=== PATIENT | male | born 1975 | race Caucasian/White ===

== ENCOUNTER 2018-06-14 05:28 | Day surgery (SDC) | payer MEDICARE, MEDICAID ==
[~2018-06-14] VITALS: Ht 152.4 cm; Wt 49.7 kg
[~2018-06-14 05:28] MED LIST: CARB15DR91 EACH EAR; COL100C PO; GLYC1TAB11 PO; LORA10TA7 PO; MAGN800O PO; PROP1DRO7 OP; SENN-161 PO
[2018-06-14] MEDS ORDERED: MIDAZOLAM HCL 10 MG/5 ML UD cup PO ONE (06:15)
[2018-06-14] MEDS ORDERED: LIDOcaine 1% (10mg/ml) 2ml vial ONE (06:24)
[2018-06-14] MEDS ORDERED: famotidine/PF 10 mg/ml inj IV ONE (06:35)
[2018-06-14] MEDS ORDERED: normal saline 1000ml 1,000 ML IV SCH (06:35)
[2018-06-14] MEDS ORDERED: ringers solution, lacted 1,000 ML IV SCH ×2 (06:40→07:28)
[2018-06-14 06:54] VITALS: BP 98/53
[2018-06-14 06:57] VITALS: BP 98/53
[2018-06-14] MEDS ORDERED: LIDOcaine 2% 10ml TOPICAL JELLY (Urojet) ONE (07:16)
[2018-06-14] MEDS ORDERED: oxymetazoline 15 ML nasal spray NS ONE (07:16)
[2018-06-14] MEDS ORDERED: fentaNYL/PF 50MCG/1 ML 2ML syringe ONE (07:21)
[2018-06-14] MEDS ORDERED: midazolam 2 mg/2 ml injection ONE (07:21)
[2018-06-14] MEDS ORDERED: ondansetron/PF 4mg/2ml inj ONE (07:22)
[2018-06-14] MEDS ORDERED: glycopyrrolate 0.2mg/ml inj ONE ×2 (07:22→08:57)
[2018-06-14] MEDS ORDERED: neostigmine methylsulfate 1 MG/ML 10ml vial ONE (07:22)
[2018-06-14] MEDS ORDERED: rocuronium 10mg/ml inj IV ONE (07:22)
[2018-06-14] MEDS ORDERED: propofol inj 20 ML IV ONE (07:23)
[2018-06-14] MEDS ORDERED: LIDOcaine 2% (20mg/ml) 5ml vial ONE (07:23)
[2018-06-14] MEDS ORDERED: dexamethasone sod phosphate 10mg/ml inj ONE (07:26)
[2018-06-14] MEDS ORDERED: sevoflurane 250ml liquid IH ONE (07:26)
[2018-06-14] MEDS ORDERED: morphine 4 MG/ML inj SYRINge IV PRN ×2 (07:30)
[2018-06-14] MEDS ORDERED: hydrALAZINE 20mg/ml inj. IV PRN (07:30)
[2018-06-14] MEDS ORDERED: fentaNYL/PF 50MCG/1 ML 2ML syringe IV PRN ×2 (07:30)
[2018-06-14] MEDS ORDERED: labetalol 20mg/4ml (5mg/ml) syringe IV PRN (07:30)
[2018-06-14] MEDS ORDERED: ondansetron/PF 4mg/2ml inj IV PRN (07:30)
[2018-06-14 09:12] VITALS: BP 129/87
[2018-06-14 09:22] VITALS: BP 118/78
[2018-06-14 09:32] VITALS: BP 110/67
== END 2018-06-14 09:42 | disposition home or self-care (01) ==
LOC: PAS 05:28
PROVIDERS: ATTEND Dentist
DX: K05.30 Chronic periodontitis, unspecified (principal); K03.6 Deposits [accretions] on teeth; G47.63 Sleep related bruxism; F73 Profound intellectual disabilities; F84.0 Autistic disorder; K59.09 Other constipation; Z79.899 Other long term (current) drug therapy
CPT/HCPCS: 41899; J1100; J2001; J2250; J2405; J2704; J3010; J3490; J7120; A7000; J2710

== ENCOUNTER 2020-11-24 19:06 | Emergency (ER) | payer MEDICARE, MEDICAID ==
[~2020-11-24] VITALS: Ht 154.9 cm; Wt 49.1 kg
[~2020-11-24 19:06] MED LIST changes: +MAGN24002 PO; -MAGN800O PO; -SENN-161 PO; +SENN-263 PO
--- NOTE | 2020-11-24 19:29 | NUR ---
RIZWANA LA, AT BEDSIDE AND CAREGIVER NOW AT BEDSIDE (THIS CAREGIVER DOES NOT KNOW THE PT AT ALL). RIZWANA REPORTS THAT HE WANTS TO TRY A PO CHALLENGE FIRST BEFORE DOING ANY INVASIVE PROCEDURES TO PT. JELLO, APPLE SUGE AND POPCICLE AND JUICE PROVIDED TO CAREGIVER. PT REPORTEDLY IS ABLE TO FEED SELF. HE IS SMILING AND CHEERFUL AND INTERACTIVE AND BLURTING OUT NONSENSE WORDS INTERMITTENTLY. ALSO ROCKING ON THE BED AND GRABBING HIS FACE AND FEET. PT PULLS AWAY FORM BP CUFF AND SPO2 PLACEMENT. RIZWANA LUQUE OK WITH NOT MONITORING.
--- NOTE | 2020-11-24 19:53 | NUR ---
PTS PRIMARY CAREGIVER, VALERIE, ON THE SPEAKERPHONE WITH ME IN THE ROOM. SHE REPORTS PT IS USUALLLY HAPPY TO GIVE HUGS AND WOULD NORMALLY NOT BOTHER ABOUT HIS STOMACH BEING PALPATED. PT PUSHES MY HANDS AWAY WHEN I TRY TO TOUCH HIS ABDOMEN. PT OFFERED REGULARLY THE FOODS ON HIS TRAY AND HE PUSHES THE SPOON AWAY, PUSHES THE POPCICLE AWAY, PUSHES THE TRAY AWAY. AFTER 10 MIN , PT DID TAKE ONE SPOONFULL OF YOGURT FROM THE CAREGIVER. VALERIE REPORT IF PT IS EVER PROVIDED FOOD, HE WILL EAT IT ENTHUSIASTICALLY. STATES HE ACTUALLY HAD AT LEAST 2 EPISODES OF VOMITING FOLLOWED BY DIARRHEA. LAST AROUND 1-2 PM.
[2020-11-24] MEDS ORDERED: ONDA4TAB6 PO (20:30)
--- NOTE | 2020-11-24 20:30 | NUR ---
Alexei LUQUE BACK IN TO SEE PT AND TALKING WITH CAREGIVER. PT ABLE TO TOLERATE SOME BITES OF THE FOOD AND SOME SIPS OF THE FLUIDS. PT TO BE DISCHARGER.
== END 2020-11-24 22:58 | disposition home or self-care (01) ==
LOC: ER 19:07
DX: R11.2 Nausea with vomiting, unspecified (principal); R19.7 Diarrhea, unspecified; R53.1 Weakness; Z79.899 Other long term (current) drug therapy
CPT/HCPCS: 99283

== ENCOUNTER → 2024-09-17 | Day surgery (SDC) | payer MEDICARE, MEDICAID ==
[~2024-09-17] VITALS: Ht 157.5 cm; Wt 59.0 kg
[~2024-09-17] MED LIST changes: +LAMO100T PO; +METO5TAB85 PO; +ONDA4TAB6 PO; -SENN-263 PO; +SENN-360 PO
== END | disposition home or self-care (01) ==
LOC: GI LAB 08:19
PROVIDERS: ATTEND Internal Medicine Gastroenterology
DX: K92.0 Hematemesis (principal); Z53.8 Procedure and treatment not carried out for other reasons

== ENCOUNTER 2024-09-26 07:13 | Day surgery (SDC) | payer MEDICARE, MEDICAID ==
[~2024-09-26] VITALS: Ht 157.5 cm; Wt 59.0 kg
[2024-09-26 07:47] VITALS: BP 105/50; PULSE 64; RESP 14
[2024-09-26] MEDS ORDERED: LIDOcaine 2% Viscous 15ml cup ONE (08:24)
[2024-09-26] MEDS ORDERED: fentaNYL/PF 50MCG/1 ML 2ML syringe ONE (08:34)
[2024-09-26] MEDS ORDERED: MIDAZolam 1 MG/ML 5ML VIAL ONE (08:34)
[2024-09-26 08:41] VITALS: BP 134/84; PULSE 79; RESP 18; O2SAT 98
[2024-09-26] MEDS ORDERED: diphenhydrAMINE 50 mg/ml inj ONE (08:41)
[2024-09-26] MEDS ORDERED: simethicone 40mg/0.6ml oral drops 30ml ONE (08:50)
[2024-09-26 09:05] VITALS: BP 130/71; PULSE 58; RESP 10; O2SAT 95
[2024-09-26 09:15] VITALS: BP 115/63; PULSE 64; RESP 13; O2SAT 91
[2024-09-26 09:25] VITALS: BP 137/67; PULSE 64; RESP 12; O2SAT 98
[2024-09-26 09:35] VITALS: BP 124/72; PULSE 68; RESP 15; O2SAT 97
== END 2024-09-26 09:40 | disposition home or self-care (01) ==
LOC: GI LAB 07:13
PROVIDERS: ATTEND Internal Medicine Gastroenterology
DX: K92.0 Hematemesis (principal); K20.90 Esophagitis, unspecified without bleeding; K25.9 Gastric ulcer, unspecified as acute or chronic, without hemorrhage or perforation; K31.89 Other diseases of stomach and duodenum; Z79.899 Other long term (current) drug therapy
CPT/HCPCS: 43239; A4620; G0500; J1200; J2250; J3010; J7030; Z7512; 88305; 88342; 99152

== ENCOUNTER 2025-01-08 06:02 | Day surgery (SDC) | payer MEDICARE, MEDICAID ==
[2025-01-01 11:02] LABS: BASOPHILS # (AUTO) 0.1 X10'3 (0-0.2); EOSINOPHILS # (AUTO) 0.1 X10'3 (0-0.9); EOSINOPHILS % (AUTO) 1.6 % (0-6); LYMPHOCYTES # (AUTO) 1.6 X10'3 (1.1-4.8); LYMPHOCYTES % (AUTO) 29.5 % (21-51); MEAN CORPUSCULAR HEMOGLOBIN 30.3 PG (27.0-31.0); MEAN CORPUSCULAR HGB CONC 32.6 g/dL (33.0-36.5); MEAN CORPUSCULAR VOLUME 92.8 FL (78-98); MEAN PLATELET VOLUME 9.3 FL (7.4-10.4); MONOCYTES # (AUTO) 0.4 X10'3 (0-0.9); MONOCYTES % (AUTO) 7.6 % (2-12); NEUTROPHILS # (AUTO) 3.2 X10'3 (1.8-7.7); NEUTROPHILS % (AUTO) 60.3 % (42-75); PRE OP HEMATOCRIT 42.8 % (42.0-52.0); PRE OP PLATELET COUNT 154 X10'3 (140-440); PRE OP WHITE BLOOD COUNT 5.3 10'3 (4.8-10.8); RED BLOOD COUNT 4.61 X10'6 (4.70-6.10); RED CELL DISTRIBUTION WIDTH 13.5 % (11.5-14.5)
[2025-01-01 11:12] LABS: ALBUMIN 3.6 G/DL (3.4-5.0); ALKALINE PHOSPHATASE 128 IU/L (46-116); BLOOD UREA NITROGEN 16 MG/DL (7-18); BUN/CREATININE RATIO 21.6 (10.0-20.0); CHLORIDE 105 MMOL/L (99-107); CREATININE 0.74 MG/DL (0.60-1.10); PRE OP ALT 21 U/L (30-65); PRE OP ANION GAP -1 (8-16); PRE OP AST 16 U/L (10-37); PRE OP BILIRUB, TOTAL 0.2 MG/DL (0.0-1.0); PRE OP GLUCOSE 64 MG/DL (70-104); PRE OP POTASSIUM 4.6 MMOL/L (3.4-5.1); PRE OP SODIUM 141 MMOL/L (135-145); TOTAL CARBON DIOXIDE 36.5 MMOL/L (24-32); TOTAL PROTEIN 7.3 G/DL (6.4-8.2); eGFR > 90 ML/MIN
[~2025-01-08] VITALS: Ht 157.5 cm; Wt 62.6 kg
[2025-01-08] VITALS (14 sets, daily range): BP systolic 118–145; BP diastolic 64–98; PULSE 71–92; RESP 12–23; TEMP 99.3; O2SAT 90–100
[2025-01-08] MEDS: ceFAZolin 2gm in dextrose, iso 50 ML IV ONE (05:30)
[~2025-01-08 06:02] MED LIST changes: +ASCO500C17 PO; -CARB15DR91 EACH EAR; +FLUT15.815; -GLYC1TAB11 PO; +LACT1CAP75 PO; -LORA10TA7 PO; -MAGN24002 PO; -METO5TAB85 PO; -ONDA4TAB6 PO; -PROP1DRO7 OP; -SENN-360 PO; +[UNRECOGNIZED DRUG - CODE] TOP
[2025-01-08] MEDS ORDERED: LIDOcaine 1% 30ml preserv. free vial ONE (06:35)
[2025-01-08] MEDS ORDERED: BUPIVAcaine 2.5mg/ml inj 50ml vial (contains preservative) ONE (06:36)
[2025-01-08] MEDS: famotidine/PF 10 mg/ml inj IV ONE (06:42)
[2025-01-08] MEDS: ringers solution, lacted 1,000 ML IV SCH (06:42)
[2025-01-08] MEDS ORDERED: ondansetron/PF 4mg/2ml inj IV PRN (07:15)
[2025-01-08] MEDS ORDERED: hydrALAZINE 20mg/ml inj. IV PRN (07:15)
[2025-01-08] MEDS ORDERED: fentaNYL/PF 50MCG/1 ML 2ML syringe IV PRN (07:15)
[2025-01-08] MEDS ORDERED: labetalol 20mg/4ml (5mg/ml) syringe IV PRN (07:15)
[2025-01-08] MEDS ORDERED: ringers solution, lacted 1,000 ML IV SCH (07:15)
[2025-01-08] MEDS ORDERED: morphine 4 MG/ML inj SYRINge IV PRN (07:15)
[2025-01-08] MEDS ORDERED: sevoflurane 250ml liquid IH ONE (08:37)
[2025-01-08] MEDS ORDERED: midazolam 1 mg/ML 2ml injection ONE (08:38)
[2025-01-08] MEDS ORDERED: fentaNYL /PF 50mcg/ml 5ml ampule ONE (08:38)
[2025-01-08] MEDS ORDERED: propofol inj 20 ML IV ONE (08:47)
[2025-01-08] MEDS ORDERED: ondansetron/PF 4mg/2ml inj ONE (08:48)
[2025-01-08] MEDS ORDERED: dexamethasone sod phosphate 4mg/ml inj. ONE (08:48)
[2025-01-08] MEDS ORDERED: acetaminophen 1,000mg/100ml IV 100 ML IV ONE (08:54)
[2025-01-08] MEDS ORDERED: ePHEDrine 50MG/ML INJ. ONE (09:01)
[2025-01-08] MEDS ORDERED: ATROPINE SULFATE 0.4 MG/ML injection (OR only) ONE (09:03)
[2025-01-08] MEDS ORDERED: sugammadex 200mg/2ml injection IV ONE (09:36)
[2025-01-08] MEDS ORDERED: labetalol 20mg/4ml (5mg/ml) syringe IV ONE (09:39)
[2025-01-08] MEDS ORDERED: rocuronium 10mg/ml inj IV ONE (09:49)
[2025-01-08] MEDS ORDERED: naloxone 0.4 mg/ml inj IV PRN (11:30)
[2025-01-08] MEDS: morphine 2 MG/ML inj. syringe IV PRN (12:22)
[2025-01-08] MEDS: fentaNYL/PF 50MCG/1 ML 2ML syringe IV PRN (12:28)
[2025-01-08] MEDS: oxyCODONE/APAP 5-325mg tablet PO ONE (13:11)
== END 2025-01-08 13:31 | disposition home or self-care (01) ==
LOC: PAS 06:02
PROVIDERS: ATTEND Surgery
DX: K44.9 Diaphragmatic hernia without obstruction or gangrene (principal); F84.0 Autistic disorder; Z79.899 Other long term (current) drug therapy
CPT/HCPCS: 36415; 43282; 71045; 80053; 82948; 85025; A4618; A4620; C1758; C1781; J0131; J0690; J1100; J2003; J2250; J2270; J2405; J2704; J3010; J3490; J7030; J7120; Z7506; Z7508; Z7512; Z7610